=== PATIENT | male | born 1960 | race Caucasian/White ===

== ENCOUNTER 2020-07-30 11:45 | Inpatient (IN) ==
[2020-07-30] MEDS ORDERED: NS 0.9% 1000 ml BAG 1,000 ML IV ONE (11:47)
[2020-07-30] MEDS ORDERED: levETIRAcetam 1000MG IVPREMIX 1,000 MG/100 ML BAG IVPB ONE (11:54)
[2020-07-30 12:15] LABS: ABS Lymphocytes 0.7 10^3/ul (1.0-4.8); ABS Monocytes 0.4 10^3/ul (0-0.8); ABS Neutrophils 9.2 10^3/ul (1.5-7.7); Hematocrit 43 % (42-52); Hemoglobin 14.8 g/dL (14.0-18.0); Mean Corpuscular HGB Conc 35 g/dL (31-36); Mean Corpuscular Hemoglobin 30 pg (27-31); Mean Corpuscular Volume 87 fL (80-94); Mean Platelet Volume 9.5 fL (7.4-10.4); Platelet Count 260 10^3/uL (150-450); Red Cell Distribution Width 13 % (10-15); White Blood Count 10.4 10^3/uL (3.5-10.8)
[2020-07-30 12:27] LABS: Activated Partial Thrombo Time 21.7 seconds (26.0-38.0); INR 1.05 (0.82-1.09)
[2020-07-30 12:51] LABS: Albumin 4.6 g/dL (3.2-5.2); Albumin/Globulin Ratio 1.5 (1-3); BUN/Creatinine Ratio 13.1 (8-20); Calcium 9.9 mg/dL (8.6-10.3); EGFR African American 85.3 (>60); EGFR Non-African American 70.5 (>60); Globulin 3.1 g/dL (2-4); HDL Cholesterol 50.5 mg/dL; Total Bilirubin 0.7 mg/dL (0.2-1.0); Total Protein 7.7 g/dL (6.4-8.9)
[2020-07-30] MEDS ORDERED: Dexamethasone IV 6 MG in NS 0.9% 50 ML 50 ML IVPB SCH (14:00)
[2020-07-30] MEDS ORDERED: Iohexol 300 (CONTRAST) 10 ML SDV IV ONE (15:21)
[2020-07-30] MEDS ORDERED: Gadoteridol (CONTRAST) 279.3 MG/ML 10 ML IV ONE (15:36)
[2020-07-30 17:17] LABS: Urine Appearance Cloudy; Urine Bilirubin Negative (Negative); Urine Blood Negative (Negative); Urine Color Yellow; Urine Glucose Negative (Negative); Urine Ketones Trace (Negative); Urine Nitrite Negative (Negative); Urine Protein Negative (Negative); Urine Specific Gravity 1.009 (1.010-1.030); Urine Urobilinogen Negative (Negative)
[2020-07-30] MEDS: NS 0.9% w/ 20 Meq KCL 1000 ml 1,000 ML IV SCH (18:36)
[2020-07-30] MEDS: Dexamethasone IV 4 MG/ML VIAL 1 ml VIAL IV SLOW PU SCH (18:42)
[2020-07-30] MEDS: levETIRAcetam 500 MG IVPREMIX 500 MG/100 ML BAG IV SCH (23:15)
[2020-07-31] MEDS: Dexamethasone IV 4 MG/ML VIAL 1 ml VIAL IV SLOW PU SCH ×3 (02:11→18:23)
[2020-07-31] MEDS: NS 0.9% w/ 20 Meq KCL 1000 ml 1,000 ML IV SCH (05:37)
[2020-07-31 05:48] LABS: ABS Lymphocytes 0.4 10^3/ul (1.0-4.8); ABS Monocytes 0.1 10^3/ul (0-0.8); ABS Neutrophils 6.7 10^3/ul (1.5-7.7); Hematocrit 40 % (42-52); Hemoglobin 13.3 g/dL (14.0-18.0); Mean Corpuscular HGB Conc 33 g/dL (31-36); Mean Corpuscular Hemoglobin 30 pg (27-31); Mean Corpuscular Volume 89 fL (80-94); Platelet Count 227 10^3/uL (150-450); Red Blood Count 4.48 10^6 /uL (4.18-5.48); Red Cell Distribution Width 13 % (10-15); White Blood Count 7.2 10^3/uL (3.5-10.8)
[2020-07-31 06:03] LABS: EGFR African American 109.8 (>60); EGFR Non-African American 90.7 (>60); Potassium 4.1 mmol/L (3.5-5.0)
[2020-07-31] MEDS ORDERED: Influenza VAC *QUAD* 2020-21* 0.5 ML SYRINGE IM ONE (09:00)
[2020-07-31] MEDS ORDERED: Pneumococcal Vac 23-Polyvalent ONE (09:16)
[2020-07-31] MEDS: levETIRAcetam 500 MG IVPREMIX 500 MG/100 ML BAG IV SCH (12:21)
[2020-07-31] MEDS: levETIRAcetam IV 750 MG in NS 0.9% 100 ml BAG 100 ML IVPB SCH (21:26)
[2020-08-01] MEDS: Dexamethasone IV 4 MG/ML VIAL 1 ml VIAL IV SLOW PU SCH ×3 (01:56→18:08)
[2020-08-01] MEDS: levETIRAcetam IV 750 MG in NS 0.9% 100 ml BAG 100 ML IVPB SCH ×2 (09:13→21:24)
[2020-08-02] MEDS: Dexamethasone IV 4 MG/ML VIAL 1 ml VIAL IV SLOW PU SCH ×3 (02:00→17:58)
[2020-08-02] MEDS: levETIRAcetam IV 750 MG in NS 0.9% 100 ml BAG 100 ML IVPB SCH ×2 (09:10→21:59)
[2020-08-03] MEDS: Dexamethasone IV 4 MG/ML VIAL 1 ml VIAL IV SLOW PU SCH ×3 (03:20→20:55)
[2020-08-03] MEDS ORDERED: Buffered Lidocaine 1% SYRIN 1 ml INTRADERM ONE (06:00)
[2020-08-03] MEDS ORDERED: Lactated Ringers 1000 ml BAG 1,000 ML IV SCH (06:00)
[2020-08-03] MEDS ORDERED: ceFAZolin 2 GM PREMIX 2 GM/50 ML BAG IVPB ONE (06:30)
[2020-08-03] MEDS ORDERED: Gadoteridol (CONTRAST) 279.3 MG/ML 10 ML IV ONE (06:39)
[2020-08-03] MEDS ORDERED: Lidocaine 1% w EPI 1:200,000 SDV 30 ML VIAL ONE (06:49)
[2020-08-03] MEDS ORDERED: Bacitracin INJECTION 50,000 UNITS ONE (06:50)
[2020-08-03] MEDS ORDERED: Bupivacaine 0.5% SDV PF 30ML VIAL ONE (06:50)
[2020-08-03] MEDS ORDERED: Thrombin 5,000 UNITS 1 APPLIC KIT - topical use - TOPICAL ONE (06:50)
[2020-08-03] MEDS ORDERED: Bacitracin OINTMENT TUBE ONE ×2 (06:50→13:45)
[2020-08-03] MEDS ORDERED: Gelfoam Sponge SIZE 100 SPONGE ONE (06:50)
[2020-08-03] MEDS ORDERED: ceFAZolin 2 GM PREMIX 2 GM/50 ML BAG ONE (07:21)
[2020-08-03] MEDS ORDERED: Succinylcholine 200 mg VIAL 20 mg/ml 10 ml VIAL (200 mg) ONE (07:23)
[2020-08-03] MEDS ORDERED: Propofol 10 MG/ML 20 ML BTL ONE (07:23)
[2020-08-03] MEDS ORDERED: fentaNYL 250 mcg/5 ml 50 MCG/ML 5 ml VIAL (250 MCG) ONE (07:23)
[2020-08-03] MEDS ORDERED: Midazolam 2 mg/2 ml VIAL 1 mg/ml 2 ml VIAL (2 mg) ONE (07:23)
[2020-08-03] MEDS ORDERED: Remifentanil 2 MG VIAL ONE ×2 (07:24→10:57)
[2020-08-03] MEDS ORDERED: Rocuronium 50 mg VIAL 10 mg/ml 5 ml VIAL (50 mg) ONE (07:24)
[2020-08-03] MEDS ORDERED: Lidocaine 2% PF 5 ML VIAL ONE ×2 (07:41→10:45)
[2020-08-03] MEDS ORDERED: fentaNYL 100 mcg/2 ml 50 MCG/ML VIAL IV PRN (08:43)
[2020-08-03] MEDS ORDERED: Ondansetron 4 mg VIAL 2 MG/ML 2 ml VIAL IV PRN (08:43)
[2020-08-03] MEDS ORDERED: HYDROmorphone 1 MG/1 ML SYRINGE IV PRN (08:43)
[2020-08-03] MEDS ORDERED: Naloxone 0.4 mg VIAL 0.4 mg/ml 1 ml VIAL IV PRN (08:43)
[2020-08-03] MEDS ORDERED: Mannitol 25% (12.5 GM) 50 ML 12.5 GM/50 ML VIAL ONE (09:03)
[2020-08-03] MEDS ORDERED: levETIRAcetam IV 500 MG/5 ML VIAL ONE (09:03)
[2020-08-03] MEDS ORDERED: Artificial Tear OPHTH.OINT 3.5 GM ONE (09:22)
[2020-08-03] MEDS ORDERED: Furosemide 20 mg/2 ml IV VIAL ONE (10:04)
[2020-08-03] MEDS ORDERED: Dexamethasone IV 4 MG/ML VIAL 1 ml VIAL ONE (10:05)
[2020-08-03] MEDS ORDERED: HYDROmorphone 1 MG/1 ML SYRINGE ONE ×2 (10:40→13:51)
[2020-08-03] MEDS ORDERED: Ondansetron 4 mg VIAL 2 MG/ML 2 ml VIAL ONE (12:11)
[2020-08-03] MEDS ORDERED: ceFAZolin VIAL VIAL ONE (13:30)
[2020-08-03] MEDS ORDERED: hydrALAZINE 20 mg/ml 1 ML Vial IV ONE (13:50)
[2020-08-03] MEDS ORDERED: Labetalol IV 5 MG/ML 20 ml VIAL ONE (13:50)
[2020-08-03] MEDS ORDERED: hydrALAZINE 20 mg/ml 1 ML Vial IV IV SLOW PU PRN (14:29)
[2020-08-03] MEDS ORDERED: levETIRAcetam 500 MG IVPREMIX 500 MG/100 ML BAG IV SCH (15:00)
[2020-08-03] MEDS ORDERED: niCARdipine 0.1MG/ML IVPREMIX 20 MG/200 ML BAG IV SCH (15:00)
[2020-08-03] MEDS: levETIRAcetam IV 750 MG in NS 0.9% 100 ml BAG 100 ML IVPB SCH ×2 (16:42→20:41)
[2020-08-03] MEDS: Pantoprazole VIAL 40 MG VIAL IV SCH (16:42)
[2020-08-03] MEDS: NS 0.9% 1000 ml BAG 1,000 ML IV SCH (17:57)
[2020-08-03] MEDS: ceFAZolin 2 GM PREMIX 2 GM/50 ML BAG IVPB SCH (18:30)
[2020-08-03] MEDS: Albuterol 2.5mg/3 ml (0.083%) NEB.SOLN INH SCH (20:33)
[2020-08-03] MEDS: Magnesium Hydroxide LIQ 30 ML UDC PO SCH (20:40)
[2020-08-03] MEDS: Polyethylene Glycol 3350 17 GM PACKET PO SCH (20:41)
[2020-08-03] MEDS: Acetaminophen IV 1 GM/100ML 100 ML IVPB SCH (21:57)
[2020-08-04] MEDS: ceFAZolin 2 GM PREMIX 2 GM/50 ML BAG IVPB SCH ×3 (02:12→16:51)
[2020-08-04] MEDS: Albuterol 2.5mg/3 ml (0.083%) NEB.SOLN INH SCH ×2 (02:18→16:31)
[2020-08-04 05:05] LABS: ABS Lymphocytes 0.4 10^3/ul (1.0-4.8); ABS Monocytes 1.6 10^3/ul (0-0.8); ABS Neutrophils 16.4 10^3/ul (1.5-7.7); Hematocrit 33 % (42-52); Hemoglobin 11.2 g/dL (14.0-18.0); Lymphocyte % 2.1 %; Mean Corpuscular HGB Conc 33 g/dL (31-36); Mean Corpuscular Hemoglobin 29 pg (27-31); Mean Corpuscular Volume 88 fL (80-94); Mean Platelet Volume 9.6 fL (7.4-10.4); Platelet Count 208 10^3/uL (150-450); Red Blood Count 3.82 10^6 /uL (4.18-5.48); Red Cell Distribution Width 13 % (10-15); White Blood Count 18.4 10^3/uL (3.5-10.8)
[2020-08-04 05:21] LABS: Calcium 8.6 mg/dL (8.6-10.3); EGFR African American 111.3 (>60); EGFR Non-African American 91.9 (>60); Potassium 3.6 mmol/L (3.5-5.0)
[2020-08-04] MEDS: Acetaminophen IV 1 GM/100ML 100 ML IVPB SCH ×2 (06:12→13:14)
[2020-08-04] MEDS: Dexamethasone IV 4 MG/ML VIAL 1 ml VIAL IV SLOW PU SCH ×3 (06:12→21:30)
[2020-08-04] MEDS: Magnesium Hydroxide LIQ 30 ML UDC PO SCH ×2 (09:03→21:29)
[2020-08-04] MEDS: levETIRAcetam IV 750 MG in NS 0.9% 100 ml BAG 100 ML IVPB SCH ×2 (09:03→21:29)
[2020-08-04] MEDS: Polyethylene Glycol 3350 17 GM PACKET PO SCH ×2 (09:04→21:29)
[2020-08-04] MEDS: Enoxaparin 40 MG/0.4 ML SYR SUBCUT SCH (09:04)
[2020-08-04] MEDS: Pantoprazole VIAL 40 MG VIAL IV SCH (09:04)
[2020-08-04] MEDS: NS 0.9% 1000 ml BAG 1,000 ML IV SCH (13:13)
[2020-08-04] MEDS ORDERED: Gadoteridol (CONTRAST) 279.3 MG/ML 10 ML IV ONE (15:12)
[2020-08-05] MEDS: NS 0.9% 1000 ml BAG 1,000 ML IV SCH (01:00)
[2020-08-05] MEDS: ceFAZolin 2 GM PREMIX 2 GM/50 ML BAG IVPB SCH ×3 (02:50→17:28)
[2020-08-05] MEDS: Dexamethasone IV 4 MG/ML VIAL 1 ml VIAL IV SLOW PU SCH ×3 (06:25→21:38)
[2020-08-05 06:31] LABS: ABS Lymphocytes 0.7 10^3/ul (1.0-4.8); ABS Monocytes 1.5 10^3/ul (0-0.8); ABS Neutrophils 14.9 10^3/ul (1.5-7.7); Hematocrit 35 % (42-52); Hemoglobin 11.5 g/dL (14.0-18.0); Mean Corpuscular HGB Conc 34 g/dL (31-36); Mean Corpuscular Hemoglobin 29 pg (27-31); Mean Corpuscular Volume 88 fL (80-94); Mean Platelet Volume 9.3 fL (7.4-10.4); Platelet Count 217 10^3/uL (150-450); Red Blood Count 3.94 10^6 /uL (4.18-5.48); Red Cell Distribution Width 13 % (10-15); White Blood Count 17.2 10^3/uL (3.5-10.8)
[2020-08-05 06:46] LABS: BUN/Creatinine Ratio 19.4 (8-20); Calcium 8.3 mg/dL (8.6-10.3); EGFR African American 134.7 (>60); EGFR Non-African American 111.4 (>60)
[2020-08-05] MEDS: Enoxaparin 40 MG/0.4 ML SYR SUBCUT SCH (08:07)
[2020-08-05] MEDS: Magnesium Hydroxide LIQ 30 ML UDC PO SCH ×2 (08:07→21:38)
[2020-08-05] MEDS: Pantoprazole VIAL 40 MG VIAL IV SCH (08:07)
[2020-08-05] MEDS: Polyethylene Glycol 3350 17 GM PACKET PO SCH ×2 (08:07→21:38)
[2020-08-05] MEDS: levETIRAcetam IV 750 MG in NS 0.9% 100 ml BAG 100 ML IVPB SCH (08:11)
[2020-08-05] MEDS ORDERED: Calcium Gluconate 2 GM in NS 0.9% 100 ml BAG 100 ML IV ONE (09:59)
[2020-08-05] MEDS ORDERED: NS 0.9% 1000 ml BAG 1,000 ML IV SCH (10:27)
[2020-08-05] MEDS: Erythromycin OPTH OINT APPLIC OINT LEFT EYE SCH ×4 (12:18→21:38)
[2020-08-06] MEDS: ceFAZolin 2 GM PREMIX 2 GM/50 ML BAG IVPB SCH ×2 (01:53→10:36)
[2020-08-06] MEDS: Dexamethasone IV 4 MG/ML VIAL 1 ml VIAL IV SLOW PU SCH (05:32)
[2020-08-06 05:51] LABS: ABS Lymphocytes 0.6 10^3/ul (1.0-4.8); ABS Monocytes 1.2 10^3/ul (0-0.8); ABS Neutrophils 12.8 10^3/ul (1.5-7.7); Hematocrit 35 % (42-52); Hemoglobin 11.6 g/dL (14.0-18.0); Mean Corpuscular HGB Conc 33 g/dL (31-36); Mean Corpuscular Hemoglobin 30 pg (27-31); Mean Corpuscular Volume 89 fL (80-94); Mean Platelet Volume 9.6 fL (7.4-10.4); Platelet Count 223 10^3/uL (150-450); Red Cell Distribution Width 13 % (10-15); White Blood Count 14.6 10^3/uL (3.5-10.8)
[2020-08-06 06:14] LABS: BUN/Creatinine Ratio 22.5 (8-20); Calcium 8.7 mg/dL (8.6-10.3); EGFR African American 119.3 (>60); EGFR Non-African American 98.6 (>60); Magnesium 2.4 mg/dL (1.9-2.7); Potassium 4.1 mmol/L (3.5-5.0)
[2020-08-06] MEDS: Polyethylene Glycol 3350 17 GM PACKET PO SCH (09:38)
[2020-08-06] MEDS: Magnesium Hydroxide LIQ 30 ML UDC PO SCH ×2 (10:15→20:19)
[2020-08-06] MEDS: Pantoprazole VIAL 40 MG VIAL IV SCH (10:29)
[2020-08-06] MEDS: Enoxaparin 40 MG/0.4 ML SYR SUBCUT SCH (10:43)
[2020-08-06] MEDS: Erythromycin OPTH OINT APPLIC OINT LEFT EYE SCH ×4 (10:45→20:19)
[2020-08-06] MEDS ORDERED: Polyethylene Glycol 3350 17 GM PACKET PO PRN (15:23)
[2020-08-06] MEDS: Cholecalciferol (VIT D3) 1,000 unit TAB PO SCH (20:18)
[2020-08-07 06:19] LABS: ABS Lymphocytes 0.6 10^3/ul (1.0-4.8); ABS Monocytes 0.9 10^3/ul (0-0.8); ABS Neutrophils 12.8 10^3/ul (1.5-7.7); Hematocrit 36 % (42-52); Hemoglobin 12.1 g/dL (14.0-18.0); Lymphocyte % 4.5 %; Mean Corpuscular HGB Conc 34 g/dL (31-36); Mean Corpuscular Hemoglobin 30 pg (27-31); Mean Corpuscular Volume 88 fL (80-94); Mean Platelet Volume 9.6 fL (7.4-10.4); Platelet Count 244 10^3/uL (150-450); Red Blood Count 4.09 10^6 /uL (4.18-5.48); Red Cell Distribution Width 13 % (10-15); White Blood Count 14.4 10^3/uL (3.5-10.8)
[2020-08-07 06:40] LABS: Calcium 9.2 mg/dL (8.6-10.3); Magnesium 2.4 mg/dL (1.9-2.7)
[2020-08-07 06:44] LABS: Potassium 5.2 mmol/L (3.5-5.0)
[2020-08-07 06:46] LABS: BUN/Creatinine Ratio 23.8 (8-20); EGFR African American 112.8 (>60); EGFR Non-African American 93.2 (>60)
[2020-08-07] MEDS: Enoxaparin 40 MG/0.4 ML SYR SUBCUT SCH (08:33)
[2020-08-07] MEDS: Pantoprazole VIAL 40 MG VIAL IV SCH (08:33)
[2020-08-07] MEDS: Cholecalciferol (VIT D3) 1,000 unit TAB PO SCH (08:33)
[2020-08-07] MEDS: Magnesium Hydroxide LIQ 30 ML UDC PO SCH ×2 (08:55→20:50)
[2020-08-07] MEDS: Erythromycin OPTH OINT APPLIC OINT LEFT EYE SCH ×4 (12:21→20:50)
[2020-08-07 16:12] LABS: BUN/Creatinine Ratio 23.8 (8-20); Calcium 9.5 mg/dL (8.6-10.3); EGFR African American 119.3 (>60); EGFR Non-African American 98.6 (>60); Potassium 4.1 mmol/L (3.5-5.0)
[2020-08-08 06:00] LABS: ABS Lymphocytes 0.6 10^3/ul (1.0-4.8); ABS Monocytes 0.8 10^3/ul (0-0.8); ABS Neutrophils 11.6 10^3/ul (1.5-7.7); Eosinophil % 0.1 %; Hematocrit 36 % (42-52); Hemoglobin 12.2 g/dL (14.0-18.0); Lymphocyte % 4.6 %; Mean Corpuscular HGB Conc 33 g/dL (31-36); Mean Corpuscular Hemoglobin 30 pg (27-31); Mean Corpuscular Volume 89 fL (80-94); Mean Platelet Volume 9.5 fL (7.4-10.4); Platelet Count 269 10^3/uL (150-450); Red Cell Distribution Width 13 % (10-15)
[2020-08-08 06:16] LABS: BUN/Creatinine Ratio 21.8 (8-20); Calcium 9.4 mg/dL (8.6-10.3); EGFR African American 108.3 (>60); EGFR Non-African American 89.5 (>60)
[2020-08-08 06:17] LABS: Potassium 5.1 mmol/L (3.5-5.0)
[2020-08-08] MEDS: Erythromycin OPTH OINT APPLIC OINT LEFT EYE SCH ×2 (08:42→13:21)
[2020-08-08] MEDS: Pantoprazole VIAL 40 MG VIAL IV SCH (08:43)
[2020-08-08] MEDS: Magnesium Hydroxide LIQ 30 ML UDC PO SCH (08:44)
[2020-08-08] MEDS: Cholecalciferol (VIT D3) 1,000 unit TAB PO SCH (08:44)
[2020-08-08] MEDS: Enoxaparin 40 MG/0.4 ML SYR SUBCUT SCH (08:45)
[2020-08-08 11:27] VITALS: BP 130/87
== END 2020-08-08 15:15 | disposition home health service (06) | DRG 25 ==
LOC: SSU 11:45 → ED 11:45 → SSU 18:19 → ICU 08-03 16:35 → SSU 08-05 11:24
PROVIDERS: ADMIT Internal Medicine; ATTEND Hospitalist